=== PATIENT | female | born 1985 | race Caucasian/White ===

== ENCOUNTER 2020-01-02 10:00 | Inpatient (IN) | payer OTHER ==
[2020-01-02] MEDS ORDERED: CITRIC ACID/SODIUM CITRATE 30 ML UNIT-DOSE CUP PO ONE (10:45)
[2020-01-02] MEDS ORDERED: ELECTROLYTE-148 SOLN 500 ML IV ONE (10:45)
[2020-01-02 10:53] VITALS: BMI 32.2
[2020-01-02] MEDS ORDERED: ELECTROLYTE-148 SOLN 1,000 ML IV SCH ×2 (11:15→14:30)
[2020-01-02] MEDS ORDERED: morphine SULFATE/PF 0.5 MG/ML (2cc Syringe - QUVA) ONE (12:55)
[2020-01-02] MEDS ORDERED: PHENYLEPHRINE HCL 10 MG/1 ML SINGLE DOSE VIAL ONE (12:56)
[2020-01-02] MEDS ORDERED: ceFAZolin SODIUM 1 GM VIAL ONE (12:56)
[2020-01-02] MEDS ORDERED: KETOROLAC TROMETHAMINE 30 MG/1 ML VIAL ONE (12:56)
[2020-01-02] MEDS ORDERED: OXYTOCIN 10 UNITS/ML VIAL ONE ×2 (12:56→13:36)
[2020-01-02] MEDS ORDERED: morphine SULFATE/PF 0.5 MG/ML (2cc Syringe - QUVA) IT ONE (13:05)
[2020-01-02] MEDS ORDERED: ONDANSETRON 4 MG/2 ML VIAL IVPUSH PRN ×2 (14:18)
[2020-01-02] MEDS ORDERED: ACETAMINOPHEN 1000 MG/100 ML VIAL (NON FORMULARY) IVPB ONE (14:21)
[2020-01-02] MEDS ORDERED: oxyCODONE HCL 5 MG TABLET PO PRN ×2 (14:25)
[2020-01-02] MEDS ORDERED: IBUPROFEN 800 MG/8 ML IJ IVPB PRN (14:25)
[2020-01-02] MEDS ORDERED: METHYLERGONOVINE MALEATE 0.2 MG/1 ML AMP IM PRN (14:25)
[2020-01-02] MEDS ORDERED: SENNOSIDES/DOCUSATE COMBO (SENNA PLUS) TABLET (UD) PO PRN (14:25)
[2020-01-02] MEDS ORDERED: OXYTOCIN 20 UNITS in 0.9% NS 20 UNIT/1,000 ML INFUS.BAG IV SCH (14:30)
--- NOTE | 2020-01-02 14:30 | HP ---
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: Alzheimer's, CVA, Dementia, Migraine, Multiple Sclerosis, Peripheral Neuropathy, Parkinson's, Seizure, Syncope, TIA, Vertigo, Other Cardiovascular: No: AFIB, Aneurysm, Aortic Insufficiency, Aortic Stenosis, CAD, CHF, Deep Vein Thrombosis, HTN, Hyperlipdemia, WI, Mitral Insufficiency, Mitral Stenosis, Murmur, Pulmonary Hypertension, Other Pulmonary: No: Asthma, Bronchitis, Cancer, COPD, O2 Dependent, Pneumonia, Previously Intubated, Pulmonary Embolus, Pulmonary Fibrosis, Sleep Apnea, Other Gastrointestinal: No: Ascites, Cancer, Constipation, Crohn's Disease, Diverticulitis, Diverticulosis, Esophageal Varices, Gastritis, GERD, GI Bleed, Hemorrhoids, Hiatal Hernia, Inflamatory Bowel Disease, Irritable Bowel Disease, Pancreatitis, Peptic Ulcer Disease, Ulcerative Colitis, Other Hepatobiliary: No: Cirrhosis, Cholelithiasis, Cholecystitis, Choledocholithiasis, Hepatitis A, Hepatitis B, Hepatitis C, Other Renal/: No: Renal Failure, Renal Inusuff, BPH, Cancer, Hematuria, Hemodialysis, Neurogenic Bladder, Renal Calculi, UTI, Other Reproductive: No: Ectopic , Endometriosis, Fibroids, PID, Polycystic Ovary Syndrome, Postmenopausal, Other ...: 2 ...Para: 1 ...Term: 1 ...: 0 ...Spon : 0 ...Induced : 0 ...Living Children: 1 ...Multiple Gestation: 0 ...LMP: 04/02/19 ... Weeks Gestation by Dates: 39.4 ...EDC by Dates: 01/07/20 ...EDC by Sono: 01/09/20 Heme/Onc: No: Anemia, B12 Deficiency, Bleeding Disorder, Cancer, Current Chemotherapy, Current Radiation Therapy, Hemochromatosis, Hypercoaguable State, Myeloproliferative Synd, Sickle Cell Disease, Sickle Cell Trait, Thrombocytopenia, Other Infectious Disease: No: AIDS, C-Diff, Herpes Zoster, HIV, MRSA, STD's, Tuberculosis, VREF, Other Psych: No: Addictions, Anxiety, Bipolar, Depression, Panic, Psychosis, Schizophrenia, Other Musculoskeletal: No: Bursitis, Chronic low back pain, Hemiparesis, Hemiplegia, Osteoarthritis, Paraplegia, Other Rheumatology: No: Fibromyalgia, Gout, Lupus, Rheumatoid Arthritis, Sarcoidosis, Vasculitis, Other ENT: No: Allergic Rhinitis, Sinusitis, Other Endocrine: No: Sarabjit's Disease, Yenni's Disease, Diabetes Insipidus, Diabetes Mellitus, Hyperparathyroidism, Hyperthyroidism, Hypothyroidism, Osteopenia, SIADH, Other Dermatology: No: Basal Cell, Cellulitis, Eczema, Melanoma, Psoriasis, Squamous Cell, Other - Past Surgical History Past Surgical History: Yes: Hx Myomectomy: No Hx Transabdominal Cerclage: No - Advance Directives Advance Directives: Yes: Living Will - Smoking History Smoking history: Never smoked Have you smoked in the past 12 months: No - Alcohol/Substance Use Hx Alcohol Use: No History of Substance Use: reports: None - Social History Usual Living Arrangement: Yes: With Significant Other Do you think of yourself as: Straight/Heterosexual ADL: Independent History of Recent Travel: No Home Medications - Allergies Allergies/Adverse Reactions: Allergies Allergy/AdvReac Type Severity Reaction Status Date / Time No Known Allergies Allergy Verified 01/02/20 10:32 - Home Medications Home Medications: Ambulatory Orders Pnv No.95/Ferrous Fum/Folic AC [ Formula] 1 each PO DAILY 01/02/20 Family Medical History Family History: Denies Review of Systems - Review of Systems Constitutional: reports: No Symptoms Eyes: reports: No Symptoms HENT: reports: No Symptoms Neck: reports: No Symptoms Cardiovascular: reports: No Symptoms Respiratory: reports: No Symptoms Gastrointestinal: reports: No Symptoms Genitourinary: reports: No Symptoms Breasts: reports: No Symptoms Reported Musculoskeletal: reports: No Symptoms Integumentary: reports: No Symptoms Neurological: reports: No Symptoms Endocrine: reports: No Symptoms Hematology/Lymphatic: reports: No Symptoms Psychiatric: reports: No Symptoms Physical Exam - Maternity Vital Signs: Vital Signs Temperature 98.3 F 01/02/20 10:44 Pulse Rate 99 H 01/02/20 10:44 Respiratory Rate 18 01/02/20 10:44 Blood Pressure 137/71 01/02/20 10:44 O2 Sat by Pulse Oximetry (%) 100 01/02/20 10:30 Constitutional: Yes: Well Nourished, No Distress, Calm Eyes: Yes: WNL, Conjunctiva Clear, EOM Intact HENT: Yes: WNL, Atraumatic, Normocephalic Neck: Yes: WNL, Supple, Trachea Midline Cardiovascular: Yes: WNL, Regular Rate and Rhythm Lungs: Clear to auscultation Breast(s): Yes: WNL - Abdominal Exam/OB Fundal Height: 40 Number of Fetuses: Single Presentation: Vertex Contractions: Yes Regularity: Irregular Intensity: Mild/Mod Monitor Mode: External Heart Rate Location: [facility] Category: I Accelerations: Uniform Decelerations: None - Vaginal Exam/OB Vaginal Bleeding: No Speculum Exam: No Dilatation (cm): 1 Effacement (%): 50 Amniotic Membrane Status: Intact Presentation: Vertex/Position Station: -3 - Physical Exam Musculoskeletal: Yes: WNL Extremities: Yes: WNL Edema: Yes Edema: LUE: 1+, RUE: 1+, LLE: 1+, RLE: 1+ Integumentary: Yes: WNL Deep Tendon Reflex Grade: Normal +2 ...Motor Strength: WNL Psychiatric: Yes: WNL, Alert, Oriented Hemorrhage Risk Assessment - Risk Factors Medium Risk Factors: Yes: Prior , uterine surgery,or multiple laparotomies Risk Score: 1 Risk Level: Medium Risk Assessment/Plan for repeat lt c s , btl
--- NOTE | 2020-01-02 14:31 | OP ---
Operative Note - Note: Operative Date: 01/02/20 Pre-Operative Diagnosis: repeat lt c s , btl Operation: repeat lt c s , btl Findings: none Post-Operative Diagnosis: Same as Pre-op Surgeon: Rivera Yung Heavy Machinery Assembler: Neftaly Marroquin Anesthesiologist/PIG HANDLER: Aris Padron Anesthesia: Spinal Estimated Blood Loss (mls): 600 (no complications ) Operative Report Dictated: Yes
[2020-01-02] MEDS ORDERED: OXYTOCIN 20 UNITS in 0.9% NS 20 UNIT/1,000 ML INFUS.BAG IV ONE (14:40)
[2020-01-02] MEDS ORDERED: ACETAMINOPHEN INJECTION 100 ML IVPB ONE (14:40)
--- NOTE | 2020-01-02 18:18 | OP ---
DATE OF OPERATION: 01/02/2020 PREOPERATIVE DIAGNOSIS: Voluntary sterilization. Repeat low transverse section. . POSTOPERATIVE DIAGNOSIS: Repeat low transverse section. Bilateral tubal ligation. PROCEDURE: Repeat low transverse section and bilateral tubal ligation. SURGEON: Cyntiha Musa MD. ENVIRONMENTAL SYSTEMS COORDINATOR: YESSICA Hollingsworth. ANESTHESIA: Spinal. ANESTHESIOLOGIST: Quan Padron MD. INDICATION: A 34-year-old female patient 39 weeks' , history of a low transverse section before. All the risks, benefits, and alternatives explained to the patient including the risk of future , ectopic, nonreversible, and a 99% effective rate. Patient understood. Patient declines any other family planning methods, so patient taken to OR for repeat low transverse section and bilateral tubal ligation. DESCRIPTION OF PROCEDURE: Patient was placed on operating table in supine position after spinal anesthesia was obtained. The patient's abdomen and pelvis were prepped and draped in the usual sterile manner. Pfannenstiel incision was made. The incision was made through skin, subcutaneous tissue, until the fascia was nicked in the midline. The fascia was extended bilaterally. Intraperitoneal cavity was entered, and no bladder flap was created. Low transverse segment was entered, baby delivered from LOT position with cord around the neck x1. Baby was handed over to the transportation logistics internship after umbilical cord was doubly clamped and cut. Placenta was removed. Uterus was closed in single layer, first interlocking Vicryl sutures. Good hemostasis. Both gutters cleaned. Both ovaries, fallopian tubes, uterus within normal limits. We proceeded to the tubal ligation part. Both the isthmic and the fallopian tube was grasped with Shruthi, doubly transected and suture ligated. Good hemostasis and coagulated with Bovie. Patient tolerated procedure with tubal ligation. Both ovaries were within normal limits. Peritoneum had good hemostasis. Both gutters clean. So the peritoneum was closed. Fascia was closed. Skin was closed. Transferred to recovery room in stable condition. Blood loss about 600 mL. CYNTHIA MUSA MD [id number]
[2020-01-03] MEDS: ACETAMINOPHEN 325 MG TABLET (FP) PO PRN ×4 (06:06→20:49)
[2020-01-03] MEDS: IBUPROFEN 600 MG TABLET (FP) PO PRN ×4 (06:07→20:49)
[2020-01-03] MEDS: SIMETHICONE 80 MG TAB.CHEW (FP) PO PRN ×3 (06:08→20:49)
--- NOTE | 2020-01-03 08:13 | PN ---
Progress Note (short form) - Note Progress Note: Anesthesia Post op/Pain Pt seen and examined S:Alert and awake, comfortable O: Vital Signs Temperature 98.1 F 01/03/20 06:00 Pulse Rate 85 01/03/20 06:00 Respiratory Rate 18 01/03/20 06:00 Blood Pressure 108/61 01/03/20 06:00 O2 Sat by Pulse Oximetry (%) 96 01/02/20 22:00 A/P: s/p c section Doing well post op Continue current care Ac Haas MD
[2020-01-03] MEDS: PRENATAL VITAMINS W/ FOLIC ACID TABLET (FP) PO SCH (09:54)
[2020-01-03 09:59] LABS: BASO % 0.5 % (0-2.0); EOS % 0.5 % (0-4.5); HEMOGLOBIN 10.8 GM/dL (10.7-15.3); LYMPH % 9.4 % (8-40); MCH 30.2 pg (25.7-33.7); MCHC 33.7 g/dl (32.0-36.0); MEAN CELL VOLUME 89.6 fl (80-96); MEAN PLT VOLUME 9.8 fl (7.5-11.1); MONO % 5.3 % (3.8-10.2); NEUT % 84.3 % (42.8-82.8); PLATELET COUNT 181 K/MM3 (134-434); RBC 3.57 M/mm3 (3.60-5.2); RDW 12.7 % (11.6-15.6); WHITE BLOOD COUNT 12.7 K/mm3 (4.0-10.0)
[2020-01-03] MEDS ORDERED: BISACODYL 10 MG SUPP.RECT RC PRN (14:25)
--- NOTE | 2020-01-03 15:29 | PN ---
Post Progress Note Post Day: 1 Type of Delivery: Repeat C/S Vital Signs: Vital Signs Temperature 97.9 F 01/03/20 09:20 Pulse Rate 86 01/03/20 09:20 Respiratory Rate 20 01/03/20 14:00 Blood Pressure 117/67 01/03/20 09:20 O2 Sat by Pulse Oximetry (%) 97 01/03/20 09:20 Breast Exam: Yes: Soft Uterus: Yes: Fundus Firm, Fundus below umbilicus, Non-tender Incision: Yes: Dressing dry and intact, Sutures intact Abdomen/GI: Yes: Abdomen soft, Passing flatus, Tolerating PO Lochia: Yes: Serosa Lochia, amount: Small Extremities: Yes: Calves non-tender Perineum: Yes: Intact Activity: Ambulating (doing well, dc pt home tomorrow ) - Labs Labs: CBC WBC 12.7 K/mm3 (4.0-10.0) H 01/03/20 08:16 RBC 3.57 M/mm3 (3.60-5.2) L 01/03/20 08:16 Hgb 10.8 GM/dL (10.7-15.3) 01/03/20 08:16 Hct 32.0 % (32.4-45.2) L D 01/03/20 08:16 MCV 89.6 fl (80-96) 01/03/20 08:16 MCH 30.2 pg (25.7-33.7) 01/03/20 08:16 MCHC 33.7 g/dl (32.0-36.0) 01/03/20 08:16 RDW 12.7 % (11.6-15.6) 01/03/20 08:16 Plt Count 181 K/MM3 (134-434) D 01/03/20 08:16 MPV 9.8 fl (7.5-11.1) 01/03/20 08:16 Absolute Neuts (auto) 10.7 K/mm3 (1.5-8.0) H 01/03/20 08:16 Neutrophils % 84.3 % (42.8-82.8) H 01/03/20 08:16 Lymphocytes % 9.4 % (8-40) D 01/03/20 08:16 Monocytes % 5.3 % (3.8-10.2) 01/03/20 08:16 Eosinophils % 0.5 % (0-4.5) 01/03/20 08:16 Basophils % 0.5 % (0-2.0) 01/03/20 08:16 Nucleated RBC % 0 % (0-0) 01/03/20 08:16
--- NOTE | 2020-01-03 15:31 | DS ---
Physical Exam-HADOOP ANALYST Vital Signs: Vital Signs Temperature 97.9 F 01/03/20 09:20 Pulse Rate 86 01/03/20 09:20 Respiratory Rate 20 01/03/20 14:00 Blood Pressure 117/67 01/03/20 09:20 O2 Sat by Pulse Oximetry (%) 97 01/03/20 09:20 Constitutional: Yes: Well Nourished, No Distress, Calm Eyes: Yes: WNL, Conjunctiva Clear, EOM Intact HENT: Yes: WNL, Atraumatic, Normocephalic Neck: Yes: WNL, Supple, Trachea Midline Cardiovascular: Yes: WNL, Regular Rate and Rhythm Respiratory: Yes: WNL, Regular, CTA Bilaterally Gastrointestinal: Yes: WNL, Normal Bowel Sounds, Soft ...Rectal Exam: Yes: WNL Renal/: Yes: WNL Pelvis: Yes: WNL External Genitalia: Yes: Normal Internal Exam Deferred: Yes Vaginal Exam: Yes: Normal Cervix: Yes: Normal Uterus: Yes: Normal Adnexa: Normal: Bilateral ....Post : Yes: Uterus firm, Uterus non-tender Breast(s): Yes: WNL Musculoskeletal: Yes: WNL Extremities: Yes: WNL Edema: Yes Edema: LUE: 1+, RUE: 1+, LLE: 1+, RLE: 1+ Integumentary: Yes: WNL Wound/Incision: Yes: Clean/Dry, Well Approximated Neurological: Yes: WNL, Alert, Oriented ...Motor Strength: WNL Psychiatric: Yes: WNL, Alert, Oriented Labs: CBC, BMP 01/03/20 08:16 Delivery - Delivery Section: Repeat Type of Anesthesia: Spinal Episiotomy/Laceration: None EBL (cc): 600 Delivery, Single - Stages of Labor Date of Delivery: 01/02/20 Time of Delivery: 13:22 Time Placenta Delivered: 13:23 - Condition of Infant Supervisor Home Restoration Service/Retail Business Manager Present: Yes Name: Deepali Grimes Infant Gender: Male Weight: 3.232 kg Position: Left, OT Total Hours ROM (Hrs/Mins): 3mins - 1 Minute Total Score: 9 5 Minutes Total Score: 9 - Feeding Plan Initial Plan: Exclusive throughout hospitalization Discharge Summary Problems reviewed: Yes Reason For Visit: Procedures: Principal: repeat lt c s , btl Other Procedures: btl Hospital Course: uneventful Health Concerns: none Condition: Good - Instructions Diet, Activity, Other Instructions: Physical activity Resume your normal everyday activity as tolerated no heavy lifting or exercise until seen by your surgeon. You may walk unlimited kizzy of and climb stairs. You may resume driving the car when you feel safe and comfortable behind the wheel. No sexual activity as instructed. Wound care If you have a bandage, leave it on, and keep dry for 48-72 hours. After that time discard the outer bandage. If they are tapes on the skin under the out of bandage leave them in place. They will peel off in the next 7 to 10 days. Do Not Peel them off. You may shower the day after surgery. If there are tapes present on the skin, you may shower over them. Diet There are no dietary restrictions. Eat healthy, high-fiber foods. Drink 6 to 8 glasses of liquid each day. This will assist in keeping your bowels are regular. Pain management You may take Tylenol or acetaminophen or Ibuprofen (for example, Motrin, Advil etc.) from my pain prescription medication is ordered should be taken as prescribed for moderate to severe pain. Call MD for any of the following:call dr restrepo for 2 weeks appointment Severe pain not relieved by medication Fever of 101 or higher Excessive bleeding or drainage on dressing Inability to urinate Disposition: HOME - Home Medications Comprehensive Discharge Medication List: Ambulatory Orders Pnv No.95/Ferrous Fum/Folic AC [ Formula] 1 each PO DAILY 01/02/20 Prescription Drug Monitoring Program (I-STOP) results: I-STOP reviewed and no issues identified
[2020-01-03 22:22] VITALS: PULSE 81; TEMP 98.1
[2020-01-04] MEDS: SIMETHICONE 80 MG TAB.CHEW (FP) PO PRN ×2 (04:01→08:15)
[2020-01-04] MEDS: ACETAMINOPHEN 325 MG TABLET (FP) PO PRN ×3 (04:01→12:30)
[2020-01-04] MEDS: IBUPROFEN 600 MG TABLET (FP) PO PRN ×3 (04:02→12:29)
[2020-01-04] MEDS: PRENATAL VITAMINS W/ FOLIC ACID TABLET (FP) PO SCH (10:42)
[2020-01-04 12:33] VITALS: BP 100/60
--- NOTE | 2020-01-09 17:07 | PATH ---
Surgical Pathology Report Patient Name: ZEUS VAZQUEZ [facility]. Rec. #: [id number] /Age/Gender: 1985 (Age: 34) / F Account: [id number] Location: [facility] OBS/PTA Taken: 01/02/2020 Received: 01/05/2020 Reported: 01/09/2020 Physicians: Rivera Yung MD Specimen(s) Received A: PLACENTA B: RIGHT PORTION OF FALLOPIAN TUBE C: LEFT PORTION OF FALLOPIAN TUBE Clinical History , 39 weeks, 08/2010 Final Diagnosis A. PLACENTA, SECTION: 442 G THIRD TRIMESTER PLACENTA WITH TRIVASCULAR UMBILICAL CORD AND UNREMARKABLE PLACENTAL MEMBRANES. B. FALLOPIAN TUBE, PORTION, RIGHT, PARTIAL EXCISION: FULL LUMINAL PORTION OF UNREMARKABLE FALLOPIAN TUBE. C. FALLOPIAN TUBE, PORTION, LEFT, PARTIAL EXCISION: FULL LUMINAL PORTION OF UNREMARKABLE FALLOPIAN TUBE. Electronically Signed Batool Ruff M.D. Gross Description A. The specimen is received fresh labeled placenta and is a 442 gram, 18.5 x 15.0 x 3.0 cm. placenta with attached membranes and umbilical cord. The attached membranes are hoskins, translucent with focal opacities and insert marginally. The umbilical cord measures 31 cm. in length and averages 1 cm. in diameter. The cord inserts eccentrically, 5.5 cm. to the nearest margin. No true knots or strictures are identified. Cut surface of the umbilical cord reveals 3 vessels. The surface is francisco-blue with minimal fibrin deposition and appropriate caliber vessels. The maternal surface is red-brown with focal defects. Sectioning reveals red-brown, spongy parenchyma. No lesions are identified. Real Estate Executive Assistant sections are submitted in three cassettes as follows: 1- membrane rolls and umbilical cord; 2-3- full thickness sections of placenta. B. Received in formalin labeled "right portion of fallopian tube," is a 1.8 cm in length portion of fallopian tube. No fimbria are present. The outer surface is hosikns-dos santos and smooth. Sectioning reveals an unremarkable lumen. Real Estate Executive Assistant sections are submitted in one cassette. C. Received in formalin labeled "left portion of fallopian tube," is a 2.0 cm in length portion of fallopian tube. No fimbria are present. The outer surface is hoskins-dos santos and smooth. Sectioning reveals an unremarkable lumen. Real Estate Executive Assistant sections are submitted in one cassette. [facility]
== END 2020-01-04 13:55 | disposition home or self-care (01) | DRG 540 ==
LOC: JLDR 10:00 → J3W 16:05
PROVIDERS: ADMIT Obstetrics & Gynecology; ATTEND Obstetrics & Gynecology
PROC: 10D00Z1 Extraction of Products of Conception, Low, Open Approach (ICD-10-PCS; principal; 2020-01-02)
PROC: 0UL70ZZ Occlusion of Bilateral Fallopian Tubes, Open Approach (ICD-10-PCS; 2020-01-02)
DX: O82 Encounter for cesarean delivery without indication (principal); O34.211 Maternal care for low transverse scar from previous cesarean delivery; Z3A.39 39 weeks gestation of pregnancy; Z37.0 Single live birth; Z30.2 Encounter for sterilization; O69.81X0 Labor and delivery complicated by cord around neck, without compression, not applicable or unspecified
CPT/HCPCS: 36415; 85025; 85461; 86999; 88302-TC; 88307-TC; J0131

== ENCOUNTER 2020-01-25 20:19 | Emergency (ER) | payer OTHER ==
[2020-01-25 20:38] VITALS: BP 119/76; PULSE 65; TEMP 97.4; BMI 30.2
[2020-01-25 22:04] LABS: BASO % 0.8 % (0-2.0); EOS % 2.6 % (0-4.5); HEMATOCRIT 39.3 % (32.4-45.2); HEMOGLOBIN 13.3 GM/dL (10.7-15.3); MCH 29.6 pg (25.7-33.7); MCHC 33.8 g/dl (32.0-36.0); MEAN CELL VOLUME 87.6 fl (80-96); MEAN PLT VOLUME 9.2 fl (7.5-11.1); MONO % 7.3 % (3.8-10.2); NEUT % 67.3 % (42.8-82.8); PLATELET COUNT 251 K/MM3 (134-434); RBC 4.48 M/mm3 (3.60-5.2); RDW 12.7 % (11.6-15.6); WHITE BLOOD COUNT 9.9 K/mm3 (4.0-10.0)
[2020-01-25 22:17] LABS: INR 1.04 (0.83-1.09); PROTHROMBIN TIME (PATIENT) 12.3 SEC (9.7-13.0)
[2020-01-25 22:20] LABS: ACTIVATED PTT 28.6 SECONDS (25.2-36.5)
[2020-01-25 22:50] LABS: ALBUMIN 3.4 g/dl (3.4-5.0); BILIRUBIN,TOTAL 0.3 mg/dL (0.2-1); BLOOD UREA NITROGEN 9.5 mg/dL (7-18); CALCIUM 9.2 mg/dL (8.5-10.1); CREATININE 0.7 mg/dL (0.55-1.3); POTASSIUM 3.7 mmol/L (3.5-5.1); TOT PROT 7.5 g/dl (6.4-8.2)
--- NOTE | 2020-01-25 23:00 | PDOC ---
History of Present Illness - General Chief Complaint: Back Pain Stated Complaint: PAIN Time Seen by Provider: 01/25/20 20:42 History Source: Patient Exam Limitations: No Limitations - History of Present Illness Initial Comments: 01/25/20 22:59 Patient is in 44-year-old female who is 22 days status post here with complaints of right lower quadrant abdominal pain since yesterday. Patient has been seen in this emergency room x2 on 01/13 and 01/14 for left lower quadrant pain. On both occasions patient had a CT scan of the abdomen which showed periappendiceal thickening. Patient was admitted to the hospital for 2 days and saw general surgery who recommended antibiotics. Patient was discharged with antibiotics and completed the course on 01/23/20 but yesterday started having pain which is 7/10, dull/achy, in the right lower quadrant, associated with diarrhea and radiates to the back and thigh. She has had no fever however states she had some chills mostly at nights. She has been taking Tylenol the last dose of 5 PM today. PMD: Dr. Krystal Howe PMHX: as above PSOCHX: neg etoh, neg drug, neg cig ALL: NKDA GENERAL/CONSTITUTIONAL: [No fever or chills. No weakness. No weight change.] HEAD, EYES, EARS, NOSE AND THROAT: [No change in vision. No ear pain or discharge. No sore throat.] CARDIOVASCULAR: [No chest pain or shortness of breath.] RESPIRATORY: [No cough, wheezing, or hemoptysis.] GASTROINTESTINAL: [No nausea, vomiting, (+) diarrhea, (-) constipation. No rectal bleeding.] GENITOURINARY: [No dysuria, frequency, or change in urination.] MUSCULOSKELETAL: [No joint or muscle swelling or pain. No neck or back pain.] SKIN AND BREASTS: [No rash or easy bruising.] NEUROLOGIC: [No headache, vertigo, loss of consciousness, or loss of sensation.] PSYCHIATRIC: [No depression or anxiety.] ENDOCRINE: [No increased thirst. No abnormal weight change.] HEMATOLOGIC/LYMPHATIC: [No anemia, easy bleeding, or history of blood clots.] ALLERGIC/IMMUNOLOGIC: [No hives or skin allergy. No latex allergy.] GENERAL: [The patient is awake, alert, and fully oriented, in no acute distress.] HEAD: [Normal with no signs of trauma.] EYES: [Pupils equal, round and reactive to light, extraocular movements intact, sclera anicteric, conjunctiva clear.] ENT: [Ears normal, nares patent, oropharynx clear without exudates. Moist mucous membranes.] NECK: [Normal range of motion, supple without lymphadenopathy, JVD, or masses.] LUNGS: [Breath sounds equal, clear to auscultation bilaterally. No wheezes, and no crackles.] HEART: [Regular rate and rhythm, normal S1 and S2 without murmur, rub.] ABDOMEN: [Soft, (+) tenderness in the RLQ, normoactive bowel sounds. No guarding, no rebound. No masses.] EXTREMITIES: [Normal range of motion, no edema. No clubbing or cyanosis. No cords, erythema, or tenderness.] NEUROLOGICAL: [Cranial nerves II through XII grossly intact. Normal speech, normal gait.] PSYCH: [Normal mood, normal affect.] SKIN: [Warm, Dry, normal turgor, no rashes or lesions noted.] Past History - Medical History Allergies/Adverse Reactions: Allergies Allergy/AdvReac Type Severity Reaction Status Date / Time No Known Allergies Allergy Verified 01/02/20 10:32 Home Medications: Ambulatory Orders Pnv No.95/Ferrous Fum/Folic AC [ Formula Tablet] 1 each PO DAILY 01/02/20 Amox-Tr/K Cl [Augmentin - 875Mg Tablet] 1 tab PO BID #14 tablet 01/16/20 Asthma: No Cancer: No Cardiac Disorders: No COPD: No Diabetes: No HTN: No Seizures: No Thyroid Disease: No - Reproductive History Is Patient Now?: No - Psycho-Social/Smoking History Smoking History: Never smoked Have you smoked in the past 12 months: No - Substance Abuse Hx (Audit-C & DAST Scrn) How often the patient has a drink containing alcohol: Never Score: In Men: 4 or > Positive; In Women: 3 or > Positive: 0 Screen Result (Pos requires Nsg. Audit-10AR): Negative *Physical Exam - Vital Signs Last Vital Signs Temp Pulse Resp BP Pulse Ox 97.4 F L 65 20 119/76 99 01/25/20 20:25 01/25/20 20:25 01/25/20 20:25 01/25/20 20:25 01/25/20 20:25 ED Treatment Course - LABORATORY CBC & Chemistry Diagram: 01/25/20 21:55 01/25/20 21:55 - ADDITIONAL ORDERS Additional order review: Laboratory Results 01/25/20 01/25/20 01/25/20 21:55 21:55 21:55 PT with INR 12.30 INR 1.04 PTT (Actin FS) 28.6 D-Dimer 493 Sodium 140 Potassium 3.7 Chloride 108 H Carbon Dioxide 23 Anion Gap 9 BUN 9.5 Creatinine 0.7 Est GFR (CKD-EPI)AfAm 131.02 Est GFR (CKD-EPI)NonAf 113.04 Random Glucose 87 Calcium 9.2 Total Bilirubin 0.3 AST 20 ALT 34 Alkaline Phosphatase 88 Total Protein 7.5 Albumin 3.4 Lipase 143 01/25/20 21:55 PT with INR INR PTT (Actin FS) Cancelled D-Dimer Sodium Potassium Chloride Carbon Dioxide Anion Gap BUN Creatinine Est GFR (CKD-EPI)AfAm Est GFR (CKD-EPI)NonAf Random Glucose Calcium Total Bilirubin AST ALT Alkaline Phosphatase Total Protein Albumin Lipase 01/25/20 21:55 RBC 4.48 MCV 87.6 MCHC 33.8 RDW 12.7 MPV 9.2 D Neutrophils % 67.3 D Lymphocytes % 22.0 D Monocytes % 7.3 Eosinophils % 2.6 Basophils % 0.8 Medical Decision Making - Medical Decision Making 01/25/20 22:59 Patient is in 44-year-old female who is 22 days status post here with complaints of right lower quadrant abdominal pain since yesterday. Patient has been seen in this emergency room x2 on 01/13 and 01/14 for left lower quadrant pain. On both occasions patient had a CT scan of the abdomen which showed periappendiceal thickening. Patient was admitted to the hospital for 2 days and saw general surgery who recommended antibiotics. Patient was discha rged with antibiotics and completed the course on 01/23/20 but yesterday started having pain which is 7/10, dull/achy, in the right lower quadrant, associated with diarrhea and radiates to the back and thigh. She has had no fever however states she had some chills mostly at nights. She has been taking Tylenol the last dose of 5 PM today. DDX: Appendicitis, UTI, ovarian torsion We will get labs Hold on CT scan until labs are resulted. Patient offered pain meds but declined currently. Reassess 01/25/20 23:09 Laboratory Tests 01/25/20 01/25/20 01/25/20 21:55 21:55 21:55 WBC 9.9 Hgb 13.3 Hct 39.3 Plt Count 251 PT with INR INR PTT (Actin FS) Cancelled D-Dimer 493 Sodium Potassium Chloride Carbon Dioxide Anion Gap BUN Creatinine 01/25/20 01/25/20 21:55 21:55 WBC Hgb Hct Plt Count PT with INR 12.30 INR 1.04 PTT (Actin FS) D-Dimer Sodium 140 Potassium 3.7 Chloride 108 H Carbon Dioxide 23 Anion Gap 9 BUN 9.5 Creatinine 0.7 Patient with normal labs 01/25/20 23:50 Patient states she feels improved her pain is minimal currently. 01/25/20 23:54 Urine noted to have some white cells however patient was just on antibiotic will hold off on repeating antibiotic at this time until cultures come back. I discussed the physical exam findings, ancillary test results and final diagnoses with the patient. I answered all of the patient's questions. The patient was satisfied with the care received and felt comfortable with the discharge plan and treatment plan. The Patient agrees to follow up with the primary care physician within 24-72 hours. Discharge - Discharge Information Problems reviewed: Yes Clinical Impression/Diagnosis: Abdominal pain Qualifiers: Abdominal location: right lower quadrant Qualified Code(s): R10.31 - Right lower quadrant pain Condition: Stable - Follow up/Referral Referrals: Trice Howe [Primary Care Provider] - - Patient Discharge Instructions Patient Printed Discharge Instructions: DI for Abdominal Pain-Adult Additional Instructions: Your Discharge Instructions: You must call primary care physician within 24 hours to arrange follow-up. Return to the Emergency Department with any new, persistent or worsening symptoms, for fever, chills, SOB, dizziness or any other concerning changes that may occur. You must follow-up with Dr. Gillespie for further evaluation of your right lower and treatment quadrant pain. - Post Discharge Activity
[2020-01-25 23:37] LABS: EPI CELLS 13 /uL (0-25.1); HYALINE CASTS 2 /uL (0-3.1); PH,URINE 5.5 (5.0-8.0); URINE APPEARANCE CLEAR; URINE BACTERIA 76 /uL (0-1359); URINE BILIRUBIN NEGATIVE (NEGATIVE); URINE COLOR YELLOW; URINE GLUCOSE (UA) NEGATIVE (NEGATIVE); URINE KETONE NEGATIVE (NEGATIVE); URINE LEUK ESTERASE 2+ (NEGATIVE); URINE NITRITE NEGATIVE (NEGATIVE); URINE PROTEIN NEGATIVE (NEGATIVE); URINE RBC 22 /uL (0-23.9); URINE UROBILINOGEN 0.2 mg/dL (0.2-1.0); URINE WBC 65 /uL (0-25.8)
== END 2020-01-26 00:07 | disposition home or self-care (01) ==
LOC: JER 20:19
DX: R10.31 Right lower quadrant pain (principal)
CPT/HCPCS: 36415; 80053; 81003; 83690; 85025; 85379; 85610; 85730; 99283-25